=== PATIENT | female | born 1990 | race Caucasian/White ===

== ENCOUNTER 2019-11-26 07:38 | Outpatient (CLI) | payer BC ==
--- NOTE | 2019-11-26 08:27 | ULT ---
ULTRASOUND ABDOMEN: HISTORY: Right upper quadrant pain. FINDINGS: The liver, gallbladder, spleen, pancreas, kidneys, and visualized portions of the aorta and IVC appea r normal. The common duct measures 2 mm in diameter. No free fluid is seen. IMPRESSION: Normal exam. POS: [facility]
== END 2019-11-26 07:39 | disposition home or self-care (01) ==
LOC: BICULT 07:38
PROVIDERS: ATTEND Family Medicine
DX: R10.11 Right upper quadrant pain (principal)
CPT/HCPCS: 93975